=== PATIENT | male | born 1990 | race Caucasian/White ===

== ENCOUNTER 2018-04-07 23:12 | Observation (INO) ==
[2018-04-07 23:52] LABS: Basophils % 0.4 % (0.1-2.0); Eosinophils # 0.3 K/mm3 (0.0-0.4); Eosinophils % 3.1 % (0.1-12.0); Hematocrit 45.1 % (42.0-52.0); Hemoglobin 14.9 g/dL (14.1-18.0); Lymphocytes # 4.3 K/mm3 (0.7-4.5); Mean Corpuscular HGB Conc 33.1 g/dL (31.8-35.4); Mean Corpuscular Hemoglobin 28.5 pg (27.0-31.2); Mean Corpuscular Volume 86.2 fl (80-94); Mean Platelet Volume 7.8 fl (7.4-10.4); Monocytes # 0.7 K/mm3 (0.1-1.0); Monocytes % 6.2 % (1.7-9.3); Neutrophils # 5.7 K/mm3 (1.8-7.8); Neutrophils % 51.3 % (37.0-80.0); Platelet Count 435 K/mm3 (142-424); Red Blood Count 5.23 M/mm3 (4.60-6.20); Red Cell Distribution Width 13.3 % (11.5-17.5); White Blood Count 11.1 K/mm3 (4.8-10.8)
[2018-04-08 00:04] LABS: Albumin Level 4.4 gm/dL (3.4-5.0); Anion Gap 14.8 mEq/L (5-15); Bilirubin,Direct 0.2 mg/dL (0.0-0.2); Bilirubin,Indirect 1.6 mg/dL (0.0-0.9); Bilirubin,Total 1.8 mg/dL (0.2-1.0); Calcium 9.4 mg/dL (8.5-10.1); Potassium 3.8 mmoL/L (3.5-5.1); Total Protein,Serum 8.7 gm/dL (6.4-8.2)
--- NOTE | 2018-04-08 00:24 | Emergency Department Note ---
ED Disposition Clinical Impression: Renal insufficiency Anaphylaxis Qualifiers: Encounter type: initial encounter Qualified Code(s): T78.2XXA - Anaphylactic shock, unspecified, initial encounter Disposition: Admitted as Observation Condition on Discharge: Good - Critical Care Critical Care Time: No Attestation: On 04/07/18, the high probability of a clinically significant, sudden or life threatening deterioration of the following system(s) required my full and direct attention, intervention and personal management. The time I documented below is in addition to time spent performing reported procedures but includes the following listed in this critical care notation. Medical Decision Making - Medical Records Medical records reviewed: Yes: I reviewed the patient's medical records. - Morales Inquiry Pt receiving controlled substance: No Vital Signs: 04/07/18 23:13 04/07/18 23:52 Temperature 99.1 F Temperature Source Oral Pulse Rate [Right Radial] 107 H 97 H Respiratory Rate 18 14 Blood Pressure [Right Arm] 150/91 129/74 Blood Pressure Mean [Right Arm] 110 92 Blood Pressure Source [Right Arm] Automatic Cuff Blood Pressure Position [Right Arm] Supine 02 Sat by Pulse Oximetry 94 L 95 Oxygen Delivery Method Room Air Room Air - Lab Data Lab results reviewed: Yes: I reviewed the patient's lab results. Lab Results 04/07/18 23:40: WBC 11.1 H, RBC 5.23, Hgb 14.9, Hct 45.1, MCV 86.2, MCH 28.5, MCHC 33.1, RDW 13.3, Plt Count 435 H, MPV 7.8, Neut % (Auto) 51.3, Lymph % (Auto ) 39.0, [place] % (Auto) 6.2, Eos % (Auto) 3.1, Baso % (Auto) 0.4, Neut # (Auto) 5.7, Lymph # (Auto) 4.3, [place] # (Auto) 0.7, Eos # (Auto) 0.3, Baso # (Auto) 0.0 04/07/18 23:40: Sodium 142, Potassium 3.8, Chloride 103, Carbon Dioxide 28, Anion Gap 14.8, BUN 20 H, Creatinine 1.41 H, Estimated Creat Clear 97, Estimated GFR 61, Est GFR ( Amer) 74, Glucose 103, Calcium 9.4, Total Bilirubin 1.8 H, Direct Bilirubin 0.2, Indirect Bilirubin 1.6 H, AST 32, ALT 35 , Alkaline Phosphatase 123 H, Total Protein 8.7 H, Albumin 4.4, Amylase 35, Lipase 67 L Result diagrams: 04/07/18 23:40 04/07/18 23:40 Orders (Tests/Meds): ED MEDICATIONS Generic Name Dose Route Start Last Admin Trade Name Freq PRN Reason Stop Dose Admin Sodium Chloride 1,000 mls @ 999 mls/hr 04/07/18 23:45 04/07/18 23:31 Sod Chlor 0.9% 1000ml Bag IV 04/08/18 00:45 999 mls/hr .Q1H1M RADHA Administration Discontinued Medications Generic Name Dose Route Start Last Admin Trade Name Freq PRN Reason Stop Dose Admin Diphenhydramine HCl 50 mg 04/07/18 23:36 04/07/18 23:30 Benadryl 50mg/1ml Vial IV 04/07/18 23:37 50 mg ONCE ONE Administration Epinephrine HCl 0.1 mg 04/07/18 23:37 04/07/18 23:41 Epinephrine 1mg/Ml Amp SQ 04/07/18 23:38 0.1 mg ONCE ONE Administration Famotidine 20 mg 04/07/18 23:37 04/07/18 23:35 Pepcid 20mg/2ml Vial IV 04/07/18 23:38 20 mg ONCE ONE Administration Methylprednisolone Sodium Succinate 125 mg 04/07/18 23:37 04/07/18 23:30 Solu-Medrol 125mg/2ml Vial IV 04/07/18 23:38 125 mg ONCE ONE Administration ORDERS Category Date Time Status XR chest portable Stat Exams 04/07/18 23:39 Taken - Radiology Data #1 Image(s): Chest Image Reviewed: Yes I reviewed the patient's radiology image Preliminary Findings: Normal/NAD - Physician Consults Physician Consulted: perez Reason -: Admission Allergic React/Insect Bite HPI - General Chief complaint: Allergic Reaction Stated complaint: allergic reation Time Seen by Provider: 04/08/18 00:18 Mode of Arrival - ED Triage: EMS Source of Information: Patient, EMS, Medical Record Limitations: No Limitations - History of Present Illness HPI narrative: wm eating chips and dev rash and itching and then lips swelling and feeling sob - called 911 and had facial swelling and progressive lip swelling and no prev hx of similiar - has hx of hepatitis and prev iv drug use MD complaint: allergic reaction, facial swelling Onset (ago): hour(s) Symptoms: rash, itching, facial swelling, lip swelling, difficulty swallowing, difficulty breathing Treatment prior to arrival: none Allergies/Adverse Reactions: Allergies Allergy/AdvReac Type Severity Reaction Status Date / Time Penicillins [PENICILLINS] Allergy Mild Unverified 10/20/17 14:52 Previous Allergic Reaction History: none Severity: severe - Related Data Home Medications Medication Instructions Recorded Confirmed No Known Home Medications 04/07/18 04/07/18 [facility] History I have reviewed the patient's past medical history: Yes Medical History: Denies:: Cancer, Diabetes Mellitus Type 1, Diabetes Mellitus Type 2, MRSA Amputation: No Fractures: No - Social History Smoking Status: Current every day smoker Tobacco Type: cigarettes Alcohol Intake: current Substance Use Type: heroin - Psychiatric History Expresses thoughts of harming self/others: None Suicide Plan Description: No Plan ROS Obtained: Yes All systems reviewed & no additional complaints - Constitutional Constitutional: Denies fever(s) - Eyes Eyes: Denies change in vision - ENT Ears, Nose, Mouth, and Throat: Reports as per HPI, Reports change in voice, Reports other (lip swelling ) - Cardiovascular Cardiovascular: Denies chest pain, Reports dyspnea - Respiratory Respiratory: No cough, No dyspnea - Gastrointestinal Gastrointestingal: Denies: abdominal pain - Genitourinary Male Genitourinary: Denies hematuria - Musculoskeletal Musculoskeletal: Denies joint pain, Denies joint swelling - Integumentary/Breasts Skin/Breast: Reports rash - Neurologic Neurologic: Denies seizure-like activity Physical Exam - General General appearance: in no apparent distress - Head Head exam: normocephalic - Eye Eye exam: Present: PERRL, EOMI, periorbital swelling. Absent: scleral icterus - ENT ENT exam: Present: mucous membranes dry, other (swollen lips ) - Neck Neck exam: Present: trachea midline - Respiratory Respiratory exam: Present: normal lung sounds bilaterally. Absent: respiratory distress - Cardiovascular Cardiovascular exam: Present: regular rate, systolic murmur - Abdominal Exam Abdominal exam: Present: soft - Extremities Exam Extremities exam: Present: full ROM - Neurological Exam Neurological exam: Present: alert, oriented X3, CN II-XII intact - Psychiatric Psychiatric exam: Present: normal affect - Skin Skin exam: Present: other (hives ). Absent: rash
--- NOTE | 2018-04-13 08:25 | H&P/Discharge Summary ---
General - General Admission date:: 04/08/18 Discharge date: 04/08/18 (Patient signed out AMA 2-3 hours after admission) *Admission Date: 04/08/18 *Chief complaint: All information taken from ER record. Patient signed out AMA before being *History of present illness: Unable to complete due to patient signing out AMA prior to being seen. Unable to complete past medical history, surgical history, and review of systems due to patient leaving AMA prior to being seen. Please see ER record [facility] History Medical History: Denies:: Cancer, Diabetes Mellitus Type 1, Diabetes Mellitus Type 2, MRSA Amputation: No Fractures: No - *Social History Smoking Status: Current every day smoker Tobacco Type: cigarettes Alcohol Intake: current Substance Use Type: heroin Occupational Status: other - Psychiatric History Expresses thoughts of harming self/others: None Suicide Plan Description: No Plan Review of Systems - Review of Systems Unable to do review of systems due to patient leaving AMA prior to being seen - *Neurologic Denies seizure-like activity Exam Vital signs and Labs for Last 24 Hours: Temp Pulse Resp BP Pulse Ox 98.1 F 70 18 138/73 98 04/08/18 04:00 04/08/18 04:00 04/08/18 04:00 04/08/18 04:00 04/08/18 04:00 Laboratory Tests 04/07/18 04/07/18 23:40 23:40 WBC 11.1 H RBC 5.23 Hgb 14.9 Hct 45.1 MCV 86.2 MCH 28.5 MCHC 33.1 RDW 13.3 Plt Count 435 H MPV 7.8 Neut % (Auto) 51.3 Lymph % (Auto) 39.0 [place] % (Auto) 6.2 Eos % (Auto) 3.1 Baso % (Auto) 0.4 Neut # (Auto) 5.7 Lymph # (Auto) 4.3 [place] # (Auto) 0.7 Eos # (Auto) 0.3 Baso # (Auto) 0.0 Sodium 142 Potassium 3.8 Chloride 103 Carbon Dioxide 28 Anion Gap 14.8 BUN 20 H Creatinine 1.41 H Estimated Creat Clear 97 Estimated GFR 61 Est GFR ( Amer) 74 Glucose 103 Calcium 9.4 Total Bilirubin 1.8 H Direct Bilirubin 0.2 Indirect Bilirubin 1.6 H AST 32 ALT 35 Alkaline Phosphatase 123 H Total Protein 8.7 H Albumin 4.4 Amylase 35 Lipase 67 L Radiology Reports for the Last 24 Hours: 04/07/18 CXR IMPRESSION: Negative chest, no acute finding 04/07/2018 EKG Normal sinus rhythm. Normal EKG. Narrative: The following exam was completed in the emergency room prior to admission to the medical floor. Unable to do additional exam due to patient signing out AMA - General General appearance: in no apparent distress - Head Head exam: normocephalic - Eye Eye exam: Present: PERRL, EOMI, periorbital swelling. Absent: scleral icterus - ENT ENT exam: Present: mucous membranes dry, other (swollen lips ) - Neck Neck exam: Present: trachea midline - Respiratory Respiratory exam: Present: normal lung sounds bilaterally. Absent: respiratory distress - Cardiovascular Cardiovascular exam: Present: regular rate, systolic murmur - Abdominal Exam Abdominal exam: Present: soft - Extremities Exam Extremities exam: Present: full ROM - Neurological Exam Neurological exam: Present: alert, oriented X3, CN II-XII intact - Psychiatric Psychiatric exam: Present: normal affect - Skin Skin exam: Present: other (hives ). Absent: rash Hospital Course Hospital Course: Patient arrived to the floor about 1:30 AM and was very sedated. Nurses were unable to obtain any additional information. Patient did arouse to name, open his eyes, then quickly went back to sleep. Patient did nod yes when asked if he was comfortable. Eyes and lips were noted to be edematous but edema did seem to have decreased According to nursing notes patient awakened about 5:10 AM. He was alert and oriented. He was assisted to the bathroom. He wanted his girlfriend to be notified so that he could find a ride which was done. Patient indicated that he wanted to leave. At this point a ride was obtained and patient signed out AMA. Again information is obtained from the medical records. Patient signed out AMA prior to being assessed by [facility]. Discharge Medications Discharge Medications: Home Medications Medication Instructions Recorded Confirmed Type No Known Home Medications 04/07/18 04/07/18 History Disposition Disposition: Left Against Medical Advice
== END 2018-04-08 06:36 | disposition left against medical advice (07) ==
LOC: 2ND 23:12 → ER 23:12 → 2ND 04-08 00:55
PROVIDERS: ADMIT Family Medicine; ATTEND Family Medicine
CPT/HCPCS: 71010; 71045; 80048; 80076; 82150; 83690; 85025; 93005; 96365; 96366; 96372; 96375; 99284; G0378